=== PATIENT | male | born 1975 | race Two or more races ===

== ENCOUNTER 2021-08-24 17:00 | Emergency (ER) | payer BC ==
[~2021-08-24] VITALS: Ht 170.2 cm; Wt 81.8 kg
[2021-08-24 18:01] LABS: BASO # 0.1 x10^3/uL (0.0-0.2); BASO % 1 % (0-3); EOS # 0.1 x10^3/uL (0.0-0.7); EOS % 0 % (0-3); HEMOGLOBIN 16.4 g/dL (13.0-17.5); LYMPH # 2.9 x10^3/uL (1.0-4.8); LYMPH % 22 % (24-48); MEAN CORPUSCULAR HEMOGLOBIN 30 pg (25-35); MEAN CORPUSCULAR HGB CONC 34 g/dL (31-37); MEAN CORPUSCULAR VOLUME 87 fL (79-100); MONO # 1.2 x10^3/uL (0.0-1.1); MONO % 9 % (0-9); NEUT % 68 % (31-73); PLATELET COUNT 295 x10^3/uL (140-400); RED BLOOD COUNT 5.49 x10^6/uL (4.30-5.70); RED CELL DISTRIBUTION WIDTH 14.2 % (11.5-14.5); WHITE BLOOD COUNT 13.3 x10^3/uL (4.0-11.0)
[2021-08-24 18:12] LABS: CALCIUM 8.7 mg/dL (8.5-10.1); CREATININE 0.9 mg/dL (0.7-1.3); GFR 90.8; POTASSIUM 3.8 mmol/L (3.5-5.1)
--- NOTE | 2021-08-24 18:18 | PHYS DOC ---
Past Medical History Past Surgical History: No Surgical History (EDUARDO MONTES MD) Smoking Status: Never Smoker Alcohol Use: None (EDUARDO MONTES MD) General Adult EDM: Chief Complaint: GI PROBLEM HPI: HPI: Patient is a 45 year old male who presents with pain around an umbilical hernia. Patient states that the umbilical hernia has been present for over a year, but has not bothered him so he has made a joint decision with his PCP to observe it. Over the past 2 days has had increasing pain and redness around the bellybutton. He has noticed a hard area on the bottom half of his bellybutton. It is tender to light touch and is worse with pressure or with movement. He has had a small amount of nausea but no vomiting. Denies change in bowel habits. Denies fever/chills. No history of previous abdominal surgeries. (EDUARDO MONTES MD) Review of Systems: Review of Systems: Constitutional: Denies fever or chills. [] HENT: Denies nasal congestion or sore throat. [] Respiratory: Denies cough or shortness of breath. [] Cardiovascular: Denies chest pain or edema. [] GI: Reports mild nausea, abdominal pain, and periumbilical hernia. No vomiting. : Denies dysuria. [] Musculoskeletal: Denies back pain or joint pain. [] Integument: Reports redness over his bellybutton. (EDUARDO MONTES MD) Heart Score: C/O Chest Pain: No Risk Factors: Risk Factors: DM, Current or recent (<one month) smoker, HTN, HLP, family hist ory of CAD, obesity. Risk Scores: Score 0 - 3: 2.5% MACE over next 6 weeks - Discharge Home Score 4 - 6: 20.3% MACE over next 6 weeks - Admit for Clinical Observation Score 7 - 10: 72.7% MACE over next 6 weeks - Early Invasive Strategies (EDUARDO MONTES MD) Allergies: Allergies: Allergies Coded Allergies Type Severity Reaction Last Updated Verified No Known Drug Allergies 08/24/21 No (EDUARDO MONTES MD) Physical Exam: PE: Constitutional: No acute distress, moves about room without evidence of discomfort. HENT: Normocephalic, atraumatic Cardiovascular:Heart rate regular rhythm Lungs & Thorax: Normal work of breathing. Abdomen: Tenderness around umbilicus. Obvious umbilical hernia present with 3 diameter cm of surrounding erythema. Approximately 1.5 cm diameter firm, tender, nodular structure at the inferior portion of the umbilicus.. Not reducible. Aside from the immediate area surrounding the umbilicus the rest of the abdominal exam is nontender and soft. Skin: Warm, dry, overlying erythema as above. Neurologic: Alert and oriented X 3, normal motor function, normal sensory function, no focal deficits noted. [] Psychologic: Affect normal, judgement normal, mood normal. [] (EDUARDO MONTES MD) Current Patient Data: Labs: Laboratory Tests Test 08/24/21 17:57 White Blood Count 13.3 x10^3/uL (4.0-11.0) H Red Blood Count 5.49 x10^6/uL (4.30-5.70) Hemoglobin 16.4 g/dL (13.0-17.5) Hematocrit 48.0 % (39.0-53.0) Mean Corpuscular Volume 87 fL (79-100) Mean Corpuscular Hemoglobin 30 pg (25-35) Mean Corpuscular Hemoglobin Concent 34 g/dL (31-37) Red Cell Distribution Width 14.2 % (11.5-14.5) Platelet Count 295 x10^3/uL (140-400) Neutrophils (%) (Auto) 68 % (31-73) Lymphocytes (%) (Auto) 22 % (24-48) L Monocytes (%) (Auto) 9 % (0-9) Eosinophils (%) (Auto) 0 % (0-3) Basophils (%) (Auto) 1 % (0-3) Neutrophils # (Auto) 9.0 x10^3/uL (1.8-7.7) H Lymphocytes # (Auto) 2.9 x10^3/uL (1.0-4.8) Monocytes # (Auto) 1.2 x10^3/uL (0.0-1.1) H Eosinophils # (Auto) 0.1 x10^3/uL (0.0-0.7) Basophils # (Auto) 0.1 x10^3/uL (0.0-0.2) Laboratory Tests 08/24/21 17:57 Vital Signs: Vital Signs Date Time Temp Pulse Resp B/P (MAP) Pulse Ox O2 Delivery O2 Flow Rate FiO2 08/24/21 17:41 97.9 78 20 139/88 (105) 99 Room Air 97.9 (EDUARDO MONTES MD) EKG: EKG: [] (EDUARDO MONTES MD) Radiology/Procedures: Radiology/Procedures: [] (EDUARDO MONTES MD) Radiology/Procedures: IMAGING REPORT Signed PATIENT: ADAIR CANTRELL ACCOUNT: [id number] : 1975 LOCATION: ER AGE: 45 SEX: M EXAM STATUS: REG ER ORD. PHYSICIAN: EDUARDO MONTES MD REASON: umbilical hernia, pain, overlying redness PROCEDURE: CT ABD PELV W/ IV CONTRST ONLY EXAM: CT Abdomen and Pelvis with IV contrast CLINICAL HISTORY: Reason: umbilical hernia, pain, overlying redness / Spl. Instructions: [id number] 75ML [phone], STARTED VOMITING DURING SCAN COMPARISON: none TECHNIQUE: Helical CT of the abdomen and pelvis was performed following the administration of intravenous contrast. Axial, coronal and sagittal reformatted images were generated. PQRS compliance statement - One or more of the following individualized dose reduction techniques were utilized for this study: 1. Automated exposure control 2. Adjustment of the mA and/or kV according to patient size 3. Use of iterative reconstruction technique FINDINGS: Lower Chest: Linear and patchy opacities lower lobes and lingula likely scarring/atelectasis. Abdomen and Pelvis: Hepatic hypoattenuation, fatty liver. Gallbladder is normal. No biliary ductal dilatation. Pancreas and spleen are unremarkable. Adrenal glands are normal. Symmetric nephrograms. No focal renal lesion. No hydronephrosis. No hydroureter. Bladder is unremarkable. Moderate colonic stool content is seen. No small or large bowel dilatation. No bowel obstruction. Appendix is normal. No abdominal or pelvic ascites. No abdominal or pelvic lymphadenopathy. Aorta is normal in caliber. Infiltration is seen about the umbilicus with associated low-attenuation. No discrete loculated fluid collection. Bones: No aggressive osseous lesion is seen. IMPRESSION: Infiltration about the umbilicus with associated low-attenuation, possibly phlegmon. No discrete loculated fluid collection is seen. Hepatic hypoattenuation, fatty liver. Electronically signed by: Jose Maria Foote MD (08/24/2021 6:47 PM) [facility] DICTATED and SIGNED BY: JOSE MARIA FOOTE MD DATE: 08/24/21 [id number] (DEZ MANZANARES DO) Course & Med Decision Making: Course & Med Decision Making Pertinent Labs and Imaging studies reviewed. (See chart for details) Patient is a 45-year-old male with history of reducible umbilical hernia who presents with 2 days of increasing pain, redness, and swelling at his umbilical hernia site. Erythematous, swollen, tender, nonreducible on exam. Concern for complications from umbilical hernia such as incarceration, gangrene, abscess therefore labs including a lactate and a CT of the abdomen pelvis has been ordered. Patient has been signed out to oncoming physician, Dr. Manzanares, with labs, CT imaging, and re-evaluation pending. 1816 (EDUARDO MONTES MD) Course & Med Decision Making Concern for umbilical cellulitis with underlying phlegmon seen on CT imaging. 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 Has a known history of umbilical hernia. States he is not in any significant pain but the skin is tender to the touch and has been red for the past 2 days. No known history of MRSA. Takes no routinely prescribed medications. Has had normal bowel movements today with no vomiting. States before the redness the skin was itching-cannot recall any skin break. Reports his vaccines including tetanus are up-to-date. Patient does not meet subscribe. And is hemodynamically stable. I cannot palpate any bulging tissue at the umbilicus-no hernia noted on CT imaging (CT report printed and given to patient to take to primary care physician). Will cover patient with Keflex and Bactrim, and recommend [id number] probiotics. Will discharge home with strict ED return precautions were given for worsening pain, fever, worsening rash or vomiting. Encouraged urgent outpatient follow-up with PMD in 2 to 3 days for a wound check. Life-threatening processes were considered but are low suspicion at this time, given history, physical exam and ED workup. Pt was educated on all prescription medications and adverse effects. All patient's questions were answered and pt was stable at time of discharge. Life/limb-threatening differential includes but is not limited to, aortic dissec tion, aortic aneurysm, acute coronary syndrome, surgical abdomen (appendicitis, cholecystitis, ischemic bowel, strangulated hernia, etc), bowel obstruction or volvulus, bladder outlet obstruction, gastrointestinal bleeding, inflammatory bowel disease, peptic ulcer disease, ACS/CAD, sepsis, diverticular disease, ureterolithiasis, nephrolithiasis, ovarian or testicular torsion, ectopic , vaginal hemorrhage, or genitourinary infection. I have spoken with the patient and/or caregivers. I explained the patient's condition, diagnoses and treatment plan based on the information available to me at this time. I have answered the patient and/or caregiver's questions and addressed any concerns. The patient and/or caregivers have a good understanding of patient's diagnosis, condition and treatment plan as can be expected at this point. Vital signs have been stable. Patient's condition is stable and appropriate for discharge from the emergency department. Patient will pursue further outpatient evaluation with primary care physician or other designated or consulting physician as outlined in the discharge instructions. The patient and/or caregivers are agreeable to this plan of care and follow-up instructions have been explained in detail. The patient and/or caregivers have received these instructions in written form and have expressed an understanding of the discharge instructions. The patient and/or caregivers are aware that any significant change of condition or worsening of symptoms should prompt immediate return to this or the closest emergency department or call to 911. (DEZ HERNANDEZ DO) Dragon Disclaimer: Dragon Disclaimer: This electronic medical record was generated, in whole or in part, using a voice recognition dictation system. (EDUARDO MONTES MD) Departure Departure Impression: Primary Impression: Umbilical hernia Additional Impressions: Cellulitis, umbilical Phlegmonous cellulitis Disposition: 01 HOME / SELF CARE / HOMELESS Condition: STABLE Referrals: UNKNOWN PCP NAME (PCP) Follow-up with your primary care physician in 2-3 days for wound check OR FOLLOW UP WITH FAMILY MEDICINE: [address] [place] [address] Patient Instructions: Cellulitis Additional Instructions: EMERGENCY DEPARTMENT GENERAL DISCHARGE INSTRUCTIONS Thank you for coming to [facility] Emergency Department (ED) today and trusting us with you care. We trust that you had a positive experience in our Emergency Department. If you wish to speak to the department management, you may call the Director at [phone]. YOUR FOLLOW UP INSTRUCTIONS ARE FOLLOWS: 1. Do you have a private Doctor? If you do not have a private doctor, please a sk for a resource list of physicians or clinics that may be able to assist you with follow up care. 2. The Emergency Physicain has interpreted your x-rays. The X-Ray specialist will also review them. If there is a change in the findings, you will be notified in 48 hours when at all possible. 3. A lab test or culture has been done, your results will be reviewed and you will be notified if you need a change in treatment. ADDITIONAL INSTRUCTIONS AND INFORMATION: 1. Your care today has been supervised by a physician who is specially trained in emergency care. Many problems require more than one evaluation for a complete diagnosis and treatment. We recommend that you schedule your follow up appointment as recommended to ensure complete treatment of you illness or injury. If you are unable to obtain follow up care and continue to have a problem, or if your condition worsens, we recommend that you return to the ED. 2. We are not able to safely determine your condition over the phone nor are we able to give sound medical advice over the phone. For these safety reasons, if you call for medical advice we will ask you to come to the ED for further evaluation. 3. If you have any questions regarding these discharge instructions please call the ED at [phone]. SAFETY INFORMATION: In the interest of safety, wellness, and injury prevention; we encourage you to wear your sealbelt, if you smoke; quite smoking, and we encourage family to use a protective helmet for bicycling and other sporting events that present an increased risk for head injury. IF YOUR SYMPTOMS WORSEN OR NEW SYMPTOMS DEVELOP, OR YOU HAVE CONCERNS ABOUT YOUR CONDITION; OR IF YOUR CONDITION WORSENS WHILE YOU ARE WAITING FOR YOUR FOLLOW UP APPOINTMENT; EITHER CONTACT YOUR PRIMARY CARE DOCTOR, THE PHYSICIAN WHOSE NAME AND NUMBER YOU WERE GIVEN, OR RETURN TO THE ED IMMEDIATELY. Scripts Sulfamethoxazole/Trimethoprim (BACTRIM DS TABLET) 1 Each Tablet 1 TAB PO BID for infection for 10 Days, #20 TAB Prov: DEZ MANZANARES DO 08/24/21 Cephalexin (KEFLEX) 500 Mg Capsule 1 CAP PO QID for 10 Days, #40 CAP Prov: DEZ MANZANARES DO 08/24/21 EDUARDO MONTES MD Aug 24, 2021 18:18 DEZ MANZANARES DO Aug 24, 2021 19:21
[2021-08-24] MEDS ORDERED: IOHEXOL 300 MG/ML 100ML VIAL. IV ONE (18:30)
[2021-08-24] MEDS ORDERED: CONTRAST GIVEN. MC PRN (18:30)
--- NOTE | 2021-08-24 18:49 | RAD ---
EXAM: CT Abdomen and Pelvis with IV contrast CLINICAL HISTORY: Reason: umbilical hernia, pain, overlying redness / Spl. Instructions: [id number] 75ML [phone], STARTED VOMITING DURING SCAN COMPARISON: none TECHNIQUE: Helical CT of the abdomen and pelvis was performed following the administration of intrave nous contrast. Axial, coronal and sagittal reformatted images were generated. PQRS compliance statement - One or more of the following individualized dose reduction techniques wer e utilized for this study: 1. Automated exposure control 2. Adjustment of the mA and/or kV according to patient size 3. Use of iterative reconstruction technique FINDINGS: Lower Chest: Linear and patchy opacities lower lobes and lingula likely scarring/atelectasis. Abdomen and Pelvis: Hepatic hypoattenuation, fatty liver. Gallbladder is normal. No biliary ductal dilatation. Pancreas a nd spleen are unremarkable. Adrenal glands are normal. Symmetric nephrograms. No focal renal lesion. No hydronephrosis. No hydroureter. Bladder is unremarka ble. Moderate colonic stool content is seen. No small or large bowel dilatation. No bowel obstruction. El endix is normal. No abdominal or pelvic ascites. No abdominal or pelvic lymphadenopathy. Aorta is nor mal in caliber. Infiltration is seen about the umbilicus with associated low-attenuation. No discrete loculated fluid collection. Bones: No aggressive osseous lesion is seen. IMPRESSION: Infiltration about the umbilicus with associated low-attenuation, possibly phlegmon. No discrete locu lated fluid collection is seen. Hepatic hypoattenuation, fatty liver. Electronically signed by: Jose Maria Espinosa MD (08/24/2021 6:47 PM) [facility]
[2021-08-24] MEDS ORDERED: CEPH500C PO (19:21)
[2021-08-24] MEDS ORDERED: SULF1TAB24 PO (19:21)
[2021-08-24 19:27] VITALS: BP 127/82
== END 2021-08-24 19:32 | disposition home or self-care (01) ==
LOC: ER 17:00
DX: K42.9 Umbilical hernia without obstruction or gangrene (principal); L03.316 Cellulitis of umbilicus
CPT/HCPCS: 36415; 74177; 80048; 83605; 85025; 99285; Q9967